=== PATIENT | female | born 1935 | race Native Hawaiian/Other Pacific Islander ===

== ENCOUNTER 2016-05-07 14:04 | Outpatient (CLI) | payer OTHER, BC ==
[~2016-05-07 14:04] MED LIST: ASA LOW DOSE81 MG PO; B12-ACTIVE1 MG PO; BENICAR20 MG PO; BYSTOLIC10 MG PO; CALCIUM 604 PO; DIGOXIN0.125 MG PO; FLUTICASONE50 MCG; LEVO0.0529 PO; LIPITOR10 MG PO; MULTIVIT/MIN PO; PANT40TA PO; PAXIL10 MG PO; PRADAXA150 MG OR
== END 2016-05-07 19:24 | disposition home or self-care (01) ==
LOC: LABW 14:04
DX: G45.9 Transient cerebral ischemic attack, unspecified (principal)
CPT/HCPCS: 36415; 82607; 83090; 85651; 86039

== ENCOUNTER 2016-06-05 13:27 | Outpatient (CLI) | payer OTHER, BC | END 2016-06-05 21:41 | disposition home or self-care (01) | LOC: LAB 13:27 | DX: N39.0 Urinary tract infection, site not specified (principal) | CPT/HCPCS: 87088 ==

== ENCOUNTER 2016-07-09 11:05 | Inpatient (IN) | payer OTHER, BC ==
[~2016-07-09] VITALS: Ht 154.9 cm; Wt 60.8 kg
[2016-07-09 11:44] VITALS: BP 127/65; TEMP 98.3; Ht 154.9 cm; Wt 60.8 kg
[2016-07-09] MEDS ORDERED: FURO40TA93 PO (12:13)
[2016-07-09] MEDS ORDERED: FURO20TA67 PO (12:17)
[2016-07-09] MEDS ORDERED: ULORIC80 MG OR (12:19)
[2016-07-09] MEDS ORDERED: POTASSIUM CHLO20 ME1 PO (12:21)
[2016-07-09 12:45] LABS: PLATELET COUNT 202 K/uL (152-353)
[2016-07-09 13:22] LABS: POTASSIUM 4.1 mmol/L (3.6-5.2)
[2016-07-09 16:00] VITALS: BP 131/53; TEMP 98.6
[2016-07-09 20:00] VITALS: BP 138/53; TEMP 98.1
[2016-07-10 00:22] VITALS: BP 127/64; TEMP 98
[2016-07-10 04:00] VITALS: BP 116/58; TEMP 97.7
[2016-07-10 07:07] LABS: PLATELET COUNT 225 K/uL (152-353)
[2016-07-10 07:09] LABS: POTASSIUM 4.3 mmol/L (3.6-5.2)
[2016-07-10 07:57] VITALS: BP 110/62; TEMP 97.5
[2016-07-10 12:00] VITALS: BP 137/60; TEMP 98
[2016-07-10 16:00] VITALS: BP 118/54; TEMP 98
[2016-07-10 19:52] VITALS: BP 124/55; TEMP 97.9
[2016-07-11 00:20] VITALS: BP 115/53; TEMP 97.9
[2016-07-11 08:00] VITALS: BP 123/61; TEMP 98.4
[2016-07-11 09:08] LABS: PLATELET COUNT 247 K/uL (152-353)
[2016-07-11 09:15] LABS: POTASSIUM 4.9 mmol/L (3.6-5.2)
[2016-07-11 11:46] VITALS: BP 132/67; TEMP 98.2
[2016-07-11 16:00] VITALS: BP 145/70; TEMP 98.1
[2016-07-11 20:10] VITALS: BP 128/66; TEMP 97.8
[2016-07-12 00:25] VITALS: BP 132/58; TEMP 97.7
[2016-07-12 04:00] VITALS: BP 125/58; TEMP 97.8
[2016-07-12 07:05] LABS: PLATELET COUNT 241 K/uL (152-353)
[2016-07-12 07:12] LABS: POTASSIUM 4.7 mmol/L (3.6-5.2)
[2016-07-12 08:02] VITALS: BP 126/62; TEMP 98.3
[2016-07-12 11:43] VITALS: BP 125/64; TEMP 97.9
[2016-07-12 16:00] VITALS: BP 138/66; TEMP 98.7
[2016-07-12 19:56] VITALS: BP 146/71; TEMP 97.9
[2016-07-13] VITALS: BP 150/74; TEMP 97.6
[2016-07-13 04:00] VITALS: BP 117/61; TEMP 97.6
[2016-07-13 06:55] LABS: PLATELET COUNT 245 K/uL (152-353)
[2016-07-13 07:15] LABS: POTASSIUM 4.8 mmol/L (3.6-5.2)
[2016-07-13 08:01] VITALS: BP 129/79; TEMP 97.5
[2016-07-13 12:00] VITALS: BP 141/68; TEMP 98.1
== END 2016-07-13 12:40 | disposition home or self-care (01) | DRG 203 ==
LOC: MED/SURG 11:05
PROVIDERS: Internal Medicine; ADMIT Internal Medicine
DX: J20.9 Acute bronchitis, unspecified (principal); I48.91 Unspecified atrial fibrillation; I12.9 Hypertensive chronic kidney disease with stage 1 through stage 4 chronic kidney disease, or unspecified chronic kidney disease; N18.3 Chronic kidney disease, stage 3 (moderate); Z86.73 Personal history of transient ischemic attack (TIA), and cerebral infarction without residual deficits
CPT/HCPCS: 36415; 36591; 36600; 80048; 80053; 80162; 81000; 82805; 83735; 83880; 85027; 87040; 87070; 87205; 87804; 93005; 94640; 94664; 94760; 96367; J1644; J2930

== ENCOUNTER 2016-12-03 11:34 | Outpatient (CLI) | payer OTHER, BC ==
[~2016-12-03 11:34] MED LIST changes: +FURO20TA67 PO; +FURO40TA93 PO; +POTASSIUM CHLO20 ME1 PO; +ULORIC80 MG OR
== END 2016-12-03 21:57 | disposition home or self-care (01) ==
LOC: RAD 11:34
DX: R09.1 Pleurisy (principal)

== ENCOUNTER 2017-01-29 08:20 | Outpatient (CLI) | payer OTHER, BC ==
[2017-01-29 12:45] LABS: PLATELET COUNT 206 K/uL (152-353)
[2017-01-29 12:57] LABS: POTASSIUM 3.7 mmol/L (3.6-5.2)
== END 2017-01-29 19:21 | disposition home or self-care (01) ==
LOC: LABW 08:20
PROVIDERS: Internal Medicine
DX: E11.9 Type 2 diabetes mellitus without complications (principal)
CPT/HCPCS: 36415; 80053; 80061; 81000; 82043; 82570; 83036; 84439; 84443; 85027

== ENCOUNTER 2017-02-25 08:14 | Outpatient (CLI) | payer OTHER, BC | END 2017-02-25 09:30 | disposition home or self-care (01) | LOC: MAMMO 08:14 | DX: Z85.3 Personal history of malignant neoplasm of breast (principal) ==

== ENCOUNTER 2017-06-09 11:13 | Inpatient (IN) | payer OTHER, BC ==
[~2017-06-09] VITALS: Ht 154.9 cm; Wt 62.2 kg
[2017-06-09 12:32] LABS: PLATELET COUNT 169 K/uL (152-353)
[2017-06-09 12:55] LABS: POTASSIUM 4.3 mmol/L (3.6-5.2)
[2017-06-09 13:09] VITALS: BP 114/57; TEMP 97.9; Ht 154.9 cm; Wt 62.2 kg
[2017-06-09 16:00] VITALS: BP 114/57; TEMP 97
[2017-06-09 20:00] VITALS: BP 137/73; TEMP 98.7
[2017-06-09 23:56] VITALS: BP 117/45; TEMP 97.8
[2017-06-10 03:53] VITALS: BP 128/58; TEMP 97.5
[2017-06-10 06:18] LABS: POTASSIUM 3.9 mmol/L (3.6-5.2)
[2017-06-10 08:10] VITALS: BP 132/70; TEMP 97.7
[2017-06-10 12:00] VITALS: BP 140/68; TEMP 97.8
[2017-06-10 16:00] VITALS: BP 94/61; TEMP 97.9
[2017-06-10 19:56] VITALS: BP 110/52; TEMP 98.4
[2017-06-10 23:49] VITALS: BP 123/59; TEMP 98.8
[2017-06-11 03:56] VITALS: BP 129/65; TEMP 98.3
[2017-06-11 05:22] LABS: POTASSIUM 3.7 mmol/L (3.6-5.2)
[2017-06-11 05:28] LABS: PLATELET COUNT 249 K/uL (152-353)
[2017-06-11 08:00] VITALS: BP 138/67; TEMP 98.6
[2017-06-11 12:00] VITALS: BP 143/72; TEMP 98.8
[2017-06-11 16:00] VITALS: BP 135/67; TEMP 98.6
[2017-06-11 20:00] VITALS: BP 142/85; TEMP 97.9
[2017-06-12] VITALS: BP 154/75; TEMP 97.8
[2017-06-12 04:00] VITALS: BP 159/72; TEMP 98.3
[2017-06-12 08:00] VITALS: BP 131/45; TEMP 98
== END 2017-06-12 13:15 | disposition home or self-care (01) | DRG 192 ==
LOC: MED/SURG 11:13
PROVIDERS: ADMIT Internal Medicine
DX: J44.0 Chronic obstructive pulmonary disease with (acute) lower respiratory infection (principal); J20.9 Acute bronchitis, unspecified; J44.1 Chronic obstructive pulmonary disease with (acute) exacerbation; I48.2 Chronic atrial fibrillation; E11.65 Type 2 diabetes mellitus with hyperglycemia; I10 Essential (primary) hypertension; Z86.73 Personal history of transient ischemic attack (TIA), and cerebral infarction without residual deficits; E78.4 Other hyperlipidemia; Z85.3 Personal history of malignant neoplasm of breast
CPT/HCPCS: 36415; 80048; 80053; 81000; 82948; 83735; 83880; 84443; 85027; 85379; 87070; 87205; 93005; 94640; 94664; 94760; 96372; J1815; J1940; J2920; J2930

== ENCOUNTER 2017-08-18 07:12 | Outpatient (CLI) | payer OTHER, BC ==
[2017-08-18 08:00] LABS: PLATELET COUNT 248 K/uL (152-353)
[2017-08-18 08:23] LABS: POTASSIUM 3.9 mmol/L (3.6-5.2)
== END 2017-08-18 21:41 | disposition home or self-care (01) ==
LOC: LABW 07:12
PROVIDERS: Internal Medicine
DX: I10 Essential (primary) hypertension (principal); E03.8 Other specified hypothyroidism; E11.9 Type 2 diabetes mellitus without complications
CPT/HCPCS: 36415; 80053; 80061; 83036; 84439; 84443; 85027

== ENCOUNTER 2017-11-10 15:02 | Outpatient (CLI) | payer OTHER, BC | END 2017-11-10 23:58 | disposition home or self-care (01) | LOC: LAB 15:02 | DX: N39.0 Urinary tract infection, site not specified (principal) | CPT/HCPCS: 81000 ==

== ENCOUNTER 2018-05-18 09:24 | Outpatient (CLI) | payer OTHER, BC | END 2018-05-18 19:28 | disposition home or self-care (01) | LOC: MAMMO 09:24 | DX: Z12.31 Encounter for screening mammogram for malignant neoplasm of breast (principal) ==

== ENCOUNTER 2018-09-07 08:14 | Outpatient (CLI) | payer OTHER, BC ==
[2018-09-07 08:41] LABS: PLATELET COUNT 246 K/uL (152-353)
[2018-09-07 09:32] LABS: POTASSIUM 3.8 mmol/L (3.6-5.2)
== END 2018-09-07 20:11 | disposition home or self-care (01) ==
LOC: LABW 08:14
PROVIDERS: Internal Medicine
DX: E11.9 Type 2 diabetes mellitus without complications (principal); M10.00 Idiopathic gout, unspecified site
CPT/HCPCS: 36415; 80053; 80061; 81000; 83036; 84439; 84443; 84550; 85027

== ENCOUNTER 2018-12-15 10:59 | Outpatient (CLI) | payer OTHER, BC | END 2018-12-15 23:23 | disposition home or self-care (01) | LOC: RAD 10:59 | DX: J44.9 Chronic obstructive pulmonary disease, unspecified (principal) ==

== ENCOUNTER 2019-03-06 09:11 | Outpatient (CLI) | payer OTHER, BC ==
[2019-03-06 10:25] LABS: PLATELET COUNT 225 K/uL (152-353)
[2019-03-06 10:40] LABS: POTASSIUM 3.8 mmol/L (3.6-5.2)
== END 2019-03-06 20:13 | disposition home or self-care (01) ==
LOC: LABW 09:11
PROVIDERS: Internal Medicine
DX: E11.9 Type 2 diabetes mellitus without complications (principal); E03.8 Other specified hypothyroidism; I10 Essential (primary) hypertension; R82.998 Other abnormal findings in urine
CPT/HCPCS: 36415; 80053; 80061; 81000; 82043; 82570; 83036; 84439; 84443; 85027; 87086; 87088

== ENCOUNTER 2019-08-15 17:11 | Outpatient (CLI) | payer OTHER, BC ==
[2019-08-15 17:59] LABS: PLATELET COUNT 245 K/uL (152-353)
[2019-08-15 18:24] LABS: POTASSIUM 4.2 mmol/L (3.6-5.2)
== END 2019-08-15 19:15 | disposition home or self-care (01) ==
LOC: LAB 17:11
PROVIDERS: Internal Medicine
DX: E11.9 Type 2 diabetes mellitus without complications (principal); M10.00 Idiopathic gout, unspecified site; E03.8 Other specified hypothyroidism
CPT/HCPCS: 80053; 80061; 81000; 82043; 82570; 83036; 84439; 84443; 84550; 85027

== ENCOUNTER 2021-05-26 14:02 | Outpatient (CLI) | payer BC ==
[2021-05-26 14:18] LABS: PLATELET COUNT 223 K/uL (152-353)
[2021-05-26 14:40] LABS: POTASSIUM 4.5 mmol/L (3.6-5.2)
== END 2021-05-26 20:13 | disposition home or self-care (01) ==
LOC: LAB 14:02
PROVIDERS: ATTEND Internal Medicine
DX: E11.9 Type 2 diabetes mellitus without complications (principal); M10.00 Idiopathic gout, unspecified site
CPT/HCPCS: 80053; 80061; 81000; 82043; 83036; 84439; 84443; 84550; 85027

== ENCOUNTER 2021-08-24 09:50 | Emergency (ER) | payer BC ==
[~2021-08-24] VITALS: Ht 157.5 cm; Wt 68.0 kg
[2021-08-24 09:54] VITALS: BP 151/90; TEMP 98.5
== END 2021-08-24 12:20 | disposition home or self-care (01) ==
LOC: ED 09:50
PROC: 2W3RX1Z Immobilization of Left Lower Leg using Splint (ICD-10-PCS; principal; 2021-08-24)
DX: S90.02XA Contusion of left ankle, initial encounter (principal); S93.492A Sprain of other ligament of left ankle, initial encounter; R51.9 Headache, unspecified; W08.XXXA Fall from other furniture, initial encounter; Y92.89 Other specified places as the place of occurrence of the external cause
CPT/HCPCS: 96372; 99283; J1885

== ENCOUNTER 2021-11-16 17:39 | Emergency (ER) | payer BC ==
[~2021-11-16] VITALS: Ht 154.9 cm; Wt 68.0 kg
[2021-11-16 19:26] LABS: POTASSIUM 4.2 mmol/L (3.6-5.2)
[2021-11-16 19:36] LABS: PLATELET COUNT 181 K/uL (152-353)
[2021-11-16 20:29] LABS: PARTIAL THROMBOPLASTIN TIME 37.7 SECONDS (24.5-33.6)
[2021-11-16 21:56] VITALS: BP 102/69; TEMP 98.7
== END 2021-11-16 21:56 | disposition home or self-care (01) ==
LOC: ED 17:39
PROVIDERS: Emergency Medicine
DX: S00.11XA Contusion of right eyelid and periocular area, initial encounter (principal); S22.32XA Fracture of one rib, left side, initial encounter for closed fracture; S00.83XA Contusion of other part of head, initial encounter; W01.198A Fall on same level from slipping, tripping and stumbling with subsequent striking against other object, initial encounter; Y92.89 Other specified places as the place of occurrence of the external cause
CPT/HCPCS: 36415; 80053; 84484; 85027; 85379; 85610; 85730; 87502; 93005; 96374; 99284; J2405

== ENCOUNTER 2021-11-27 13:05 | Inpatient (IN) | payer BC ==
[2021-11-28 08:26] LABS: PLATELET COUNT 236 K/uL (152-353)
[2021-11-28 09:00] LABS: POTASSIUM 4.5 mmol/L (3.6-5.2)
[2021-12-10 06:37] LABS: POTASSIUM 4.1 mmol/L (3.6-5.2)
== END 2021-12-13 10:33 | disposition still patient (30) ==
LOC: PAVB 13:05
PROVIDERS: ADMIT Internal Medicine; ATTEND Internal Medicine
DX: N39.0 Urinary tract infection, site not specified (principal); M62.81 Muscle weakness (generalized); R27.8 Other lack of coordination; R26.2 Difficulty in walking, not elsewhere classified; Z74.1 Need for assistance with personal care; R48.8 Other symbolic dysfunctions; S22.32XD Fracture of one rib, left side, subsequent encounter for fracture with routine healing
CPT/HCPCS: 36415; 80048; 80053; 81000; 83036; 84443; 85027; 87081

== ENCOUNTER 2021-12-08 18:18 | Outpatient (CLI) | payer BC | END 2021-12-08 19:58 | disposition home or self-care (01) | LOC: RAD 18:18 | PROVIDERS: ATTEND Internal Medicine | DX: M10.9 Gout, unspecified (principal) ==

== ENCOUNTER 2021-12-13 13:20 | Inpatient (IN) | payer BC | END 2021-12-18 12:00 | disposition home or self-care (01) | LOC: PAVB 13:20 | PROVIDERS: ADMIT Internal Medicine; ATTEND Internal Medicine | DX: N39.0 Urinary tract infection, site not specified (principal); M62.81 Muscle weakness (generalized); R27.8 Other lack of coordination; R26.2 Difficulty in walking, not elsewhere classified; Z74.1 Need for assistance with personal care; R48.8 Other symbolic dysfunctions; S22.32XD Fracture of one rib, left side, subsequent encounter for fracture with routine healing | CPT/HCPCS: 87502 ==